=== PATIENT | male | born 1960 | race Caucasian/White ===

== ENCOUNTER 2017-12-24 07:43 | Day surgery (SDC) | payer BC ==
[2017-12-24] MEDS ORDERED: LR 1,000 ML IV ONE (08:05)
[2017-12-24] MEDS ORDERED: LIDOCAINE 1% 2 ML INJ ID PRN (08:05)
--- NOTE | 2017-12-24 08:18 | PDANEPAE ---
ANE History of Present Illness colonoscopy ANE Past Medical History - Cardiovascular History Hx Hypertension: No Hx Arrhythmias: No Hx Chest Pain: No Hx Coronary Artery / Peripheral Vascular Disease: No Hx CHF / Valvular Disease: No Hx Palpitations: No - Pulmonary History Hx COPD: No Hx Asthma/Reactive Airway Disease: Yes Hx Recent Upper Respiratory Infection: No Hx Oxygen in Use at Home: No Hx Sleep Apnea: No Sleep Apnea Screening Result - Last Documented: Negative Pulmonary History Comment: exercise induced asthma-using inhaler for current URI. - Neurologic History Hx Cerebrovascular Accident: No Hx Seizures: No Hx Dementia: No - Endocrine History Hx Diabetes: No Obesity: mild Endocrine History Comment: hypothyroidism - Renal History Hx Renal Disorders: No - Liver History Hx Hepatic Disorders: No - Neurological & Psychiatric Hx Hx Neurological and Psychiatric Disorders: No - Cancer History Hx Cancer: No - Congenital Disorder History Hx Congenital Disorders: No - GI History GERD: no Hx Gastrointestinal Disorders: Yes Gastrointestinal History Comment: 23 mm sesile adenoma-colon - Other Health History Other Health History: potassium daily for leg cramps - Chronic Pain History Chronic Pain: No - Surgical History Prior Surgeries: R inguinal and umbilical hernias. toe surgery ANE Review of Systems Review of Systems: - Exercise capacity METS (RN): 4 METS ANE Patient History - Allergies Allergies/Adverse Reactions: amoxicillin [Amoxicillin] Allergy (Mild, Verified 12/10/17 10:26) Rash - Home Medications Home Medications: Advair 100/50 (*) 12/10/17 [Last Taken Unknown] Albuterol 12/10/17 [Last Taken Unknown] Claritin 12/10/17 [Last Taken Unknown] Fluticasone Nasal 12/10/17 [Last Taken Unknown] Levothyroxine 12/10/17 [Last Taken Unknown] Potassium Cl 12/10/17 [Last Taken Unknown] - Anes Hx Anes Hx: no prior problems - Smoking Hx Smoking Status: Never smoked - Alcohol Use Alcohol Use: Other (5 drinks/week) - Family Anes Hx Family Anes Hx: none ANE Labs/Vital Signs - Vital Signs Blood Pressure: 128/78 Heart Rate: 49 Respiratory Rate: 14 O2 Sat (%): 95 Height: 172.72 cm Weight: 86.183 kg ANE Physical Exam - Airway Neck exam: FROM Mallampati Score: Class 2 - Pulmonary Pulmonary: clear to auscultation - Cardiovascular Cardiovascular: regular rate and rhythym - ASA Status ASA Status: II ANE Anesthesia Plan Anesthesia Plan: GA with mask
--- NOTE | 2017-12-24 08:25 | PDGENHP ---
History & Physical Chief Complaint: polyp History of Present Illness: 57 year old male presents for surveillanc of a complex cecal polyp removed on 05/28/17 in piecemeal resection (23mm) Pertinent Past, Social, Family History: SoHx: Alcohol. SurgHx: foot surg, hernia. PMHx: hypothyroid. FaMHx: colon polyps Relevant Physical Exam: HEENT: anicteric. CV: RRR +s1s2. Lungs: CTAB. Abd: soft, nt, + Bs. Ext: No c/c/e Cardiorespiratory Assessment: ASA 2
[2017-12-24] MEDS ORDERED: MIDAZOLAM 2 MG/2 ML VIAL IVP ONE (08:29)
[2017-12-24] MEDS ORDERED: fentaNYL 100 MCG/2 ML INJ ONE (08:30)
[2017-12-24] MEDS ORDERED: MIDAZOLAM 2 MG/2 ML VIAL ONE (08:31)
[2017-12-24] MEDS ORDERED: PROPOFOL 200 MG/20 ML VIAL ONE ×2 (08:31)
[2017-12-24] MEDS ORDERED: NALOXONE HCL 0.4 MG/ML INJ IVP PRN (08:51)
--- NOTE | 2017-12-24 09:13 | GIREPORT ---
[facility] Surgical Services - Endoscopy Department Patient Name: Toño Rodrigues Procedure Date: 12/24/2017 8:28 AM Patient Type: Outpatient Attending MD/ ER Physician: Bassam Bazzi MD Procedure: Colonoscopy Indications: High risk colon cancer surveillance: Personal history of colonic polyps Patient Profile: 57 year old male with a history of a complex cecal polyp presents for surveillance colonosocpy. Providers: Bassam Bazzi MD Medicines: Monitored Anesthesia Care Complications: No immediate complications. Estimated blood loss: Minimal. Description of Procedure: After obtaining informed consent, the scope was passed under direct vis ion. Throughout the procedure, the patient's blood pressure, pulse, and oxyg en saturations were monitored continuously. The Colonoscope with irrigatio n channel was introduced through the anus and advanced to the cecum, identified by appendiceal orifice and ileocecal valve. The colonoscopy was performed without difficulty. The patient tolerated the procedure well. The quality of the bowel preparation was good. The ileocecal valve, appendi ceal orifice, and rectum were photographed. Findings: The perianal and digital rectal examinations were normal. Pertinent negatives include no palpable rectal lesions. A 5 mm polyp was found in the cecum. Remnant polyp versus inflammatory polyp? The polyp was sessile. The polyp was removed with a cold snare. Biopsies were taken of the edges. Resection and retrieval were complete . Estimated Blood Loss: Estimated blood loss was minimal. Post Op Diagnosis: - One 5 mm polyp in the cecum, removed with a cold snare. Resected and retrieved. Recommendation: - Discharge patient to home (with escort). - Resume previous diet. - Continue present medications. - Repeat colonoscopy for surveillance based on pathology results. - Await pathology results. - Thank you for allowing me to participate in the care of your patient. Attending Participation: I personally performed the entire procedure. Bassam Bazzi MD Bassam Bazzi MD 12/24/2017 9:12:40 AM This report has been signed electronicallyBassam Bazzi MD Number of Addenda: 0 Note Initiated On: 12/24/2017 8:28 AM Total Procedure Duration Time 0 hours 14 minutes 39 seconds [email or web address]
[2017-12-24 10:31] VITALS: BP 134/83
--- NOTE | 2017-12-24 10:42 | POSTANESTH ---
Post Anesthetic Evaluation Cardiovascular Status: Normal, Stable Respiratory Status: Similar to Pre-op Cond. Level of Consciousness/Mental Status: Can Participate in Eval Pain Control: Adequate, Prn Tx Ordered Nausea/Vomiting Control: Adequate, Prn Tx Ordered Complications Possibly Related to Anesthesia: None Noted
== END 2017-12-24 11:03 | disposition home or self-care (01) ==
LOC: FSGY 07:43
PROVIDERS: ATTEND Internal Medicine Gastroenterology
PROC: 0DBH8ZX Excision of Cecum, Via Natural or Artificial Opening Endoscopic, Diagnostic (ICD-10-PCS; principal; 2017-12-24 09:00)
DX: D12.0 Benign neoplasm of cecum (principal); E03.9 Hypothyroidism, unspecified; Z83.71 Family history of colonic polyps; Z88.0 Allergy status to penicillin
CPT/HCPCS: J2250; J2704; J3010